=== PATIENT | female | born 1990 | race Caucasian/White ===

== ENCOUNTER 2020-01-07 02:45 | Emergency (ER) | payer OTHER ==
[2020-01-07] MEDS ORDERED: Lidocaine 1% (PF) 30 ML VIAL ONE (03:04)
== END 2020-01-07 03:27 | disposition home or self-care (01) ==
LOC: ERS 02:45
DX: L05.01 Pilonidal cyst with abscess (principal); Z79.01 Long term (current) use of anticoagulants
CPT/HCPCS: 10080; J2001

== ENCOUNTER 2020-05-01 06:47 | Emergency (ER) | payer OTHER ==
[2020-05-01 07:20] LABS: Bilirubin Negative (Negative); Blood, Urine Negative (Negative); Glucose, Urine (Dipstick) Normal (Negative); Ketone, Urine Negative (Negative); Leukocyte 250 Leu/uL (Negative); Nitrite Negative (Negative); Protein, Urine (Dipstick) Negative (Neg-Trace); Specific Gravity, Urine 1.012 (1.002-1.036); Urobilinogen Normal mg/dL (Less than 2); pH, Urine 5.5 (5.0-9.0)
[2020-05-01 07:21] LABS: Clarity Hazy (Clear)
[2020-05-01 07:22] LABS: Pregnancy Test - Urine (BHCG) Negative (Negative); Pregu Control Background? CLEAR/WHITE (CLR/WHITE); Pregu Control Bar Appear? YES (CONTROL BAR); Specific Gravity 1.012 (1.002-1.036)
[2020-05-01 07:28] LABS: RBC/HPF 0-3 HPF (0-3); Squamous Epithelial 0-3 HPF (0-3); WBC/HPF 0-3 HPF (0-3)
[2020-05-01 07:29] LABS: Bacteria/HPF 2+ HPF (None Seen)
[2020-05-01] MEDS ORDERED: Ketorolac Tromethamine 30 MG/ML VIAL ONE (08:08)
[2020-05-01 08:28] LABS: #Basophils 0.1 thou/uL (0.0-0.2); #Eosinphils 0.2 thou/uL (0.0-0.7); #Lymphocytes 2.1 thou/uL (1.20-3.40); #Monocytes 0.6 thou/uL (0.11-0.59); #Neutrophils 7.6 thou/uL (1.40-6.50); %Basophils 0.7 % (0.0-1.0); %Eosinophils 2.1 % (0.0-10.0); %Lymphocytes 20.1 % (21.0-51.0); %Monocytes 5.5 % (0.0-10.0); %Neutrophils 71.6 % (42.0-75.0); Hemoglobin 12.4 g/dL (12.0-16.0); Mean Corpuscular HGB CONC 32.3 g/dL (32.0-36.0); Mean Corpuscular Volume 89.7 fL (78.0-98.0); Mean Platelet Volume 7.3 fL (7.4-10.4); Platelet Count 339 thou/uL (130-400); RBC Distribution Width 11.4 % (11.5-14.5); Red Blood Cell (RBC) Count 4.29 mill/uL (4.20-5.40); White Blood Cell (WBC) Count 10.6 thou/uL (4.8-10.8)
[2020-05-01 08:52] LABS: ALT (SGPT) 12 U/L (8-55); AST (SGOT) 13 U/L (5-34); Albumin 3.9 g/dL (3.5-5.0); Alkaline Phosphatase 69 U/L (40-110); Anion Gap 13 mmol/L (10-20); BUN (Urea Nitrogen) 8 mg/dL (7.0-18.7); Bilirubin, Total 0.2 mg/dL (0.2-1.2); Calc. Creatinine Clearance 0 mL/min (70-130); Calcium 9.1 mg/dL (7.8-10.44); Carbon Dioxide 27 mmol/L (22-29); Chloride 102 mmol/L (98-107); Estimated GFR-MDRD Greater than 90; Globulin 3.4 g/dL (2.4-3.5); Glucose 126 mg/dL (70-105); Potassium 3.8 mmol/L (3.5-5.1); Protein, Total 7.3 g/dL (6.0-8.3); Sodium 138 mmol/L (136-145)
--- NOTE | 2020-05-01 09:28 | ULT ---
SONOGRAM RIGHT UPPER QUADRANT: HISTORY: Right upper quadrant pain. COMPARISON: 03/05/2020. FINDINGS: Multiple shadowing stones again demonstrated within the gallbladder lumen, including at the gallbladd er neck. No gallbladder wall thickening or pericholecystic fluid. No point tenderness at the gallbl adder fossa. Common duct is 0.4 cm. Liver unremarkable without focal mass or intrahepatic biliary dilatation. No free fluid. IMPRESSION: Cholelithiasis. No sonographic findings of acute cholecystitis. Gallstone lodged at the gallbladder neck could, however, be a setup for pending cholecystitis. POS: BST
== END 2020-05-01 11:51 | disposition home or self-care (01) ==
LOC: ERS 06:47
DX: K80.20 Calculus of gallbladder without cholecystitis without obstruction (principal); F41.9 Anxiety disorder, unspecified; Z79.899 Other long term (current) drug therapy
CPT/HCPCS: 36415; 76705; 80053; 81003; 81015; 81025; 83690; 85025; 96372; J1885

== ENCOUNTER 2020-05-23 11:15 | Observation (INO) | payer OTHER ==
[~2020-05-23 11:15] MED LIST: Dexamethasone 20 MG/5 ML VIAL ONE; Glycopyrrolate 0.2 MG/ML 5 ML SYRINGE ONE; Lidocaine 1% PF 5 ML VIAL ONE; Ondansetron PF 4 MG/2 ML Vial ONE; PROPOFOL 200 MG/20 ML VIAL ONE; Rocuronium Bromide 10 MG/ML (10ML VIAL) ONE
[2020-05-23 11:36] LABS: Bilirubin Negative (Negative); Blood, Urine Negative (Negative); Clarity Clear (Clear); Glucose, Urine (Dipstick) Normal (Negative); Ketone, Urine Negative (Negative); Leukocyte Negative Leu/uL (Negative); Nitrite Negative (Negative); Protein, Urine (Dipstick) Negative (Neg-Trace); Specific Gravity, Urine 1.015 (1.002-1.036); Urobilinogen Normal mg/dL (Less than 2); pH, Urine 7.5 (5.0-9.0)
[2020-05-23] MEDS ORDERED: Ondansetron PF 4 MG/2 ML Vial ONE (11:44)
[2020-05-23] MEDS ORDERED: Ketorolac Tromethamine 30 MG/ML VIAL ONE (11:44)
[2020-05-23 12:08] LABS: #Basophils 0.1 thou/uL (0.0-0.2); #Eosinphils 0.1 thou/uL (0.0-0.7); #Lymphocytes 2.1 thou/uL (1.20-3.40); #Monocytes 0.5 thou/uL (0.11-0.59); #Neutrophils 9.9 thou/uL (1.40-6.50); %Basophils 0.7 % (0.0-1.0); %Lymphocytes 16.6 % (21.0-51.0); %Monocytes 4.2 % (0.0-10.0); %Neutrophils 77.4 % (42.0-75.0); Hemoglobin 13.9 g/dL (12.0-16.0); Mean Corpuscular HGB CONC 32.7 g/dL (32.0-36.0); Mean Corpuscular Hemoglobin 29.4 pg (27.0-31.0); Mean Corpuscular Volume 89.9 fL (78.0-98.0); Mean Platelet Volume 7.9 fL (7.4-10.4); Platelet Count 352 thou/uL (130-400); RBC Distribution Width 11.3 % (11.5-14.5); Red Blood Cell (RBC) Count 4.73 mill/uL (4.20-5.40); White Blood Cell (WBC) Count 12.8 thou/uL (4.8-10.8)
[2020-05-23 12:30] LABS: ALT (SGPT) 21 U/L (8-55); AST (SGOT) 16 U/L (5-34); Albumin 4.2 g/dL (3.5-5.0); Alkaline Phosphatase 69 U/L (40-110); Anion Gap 14 mmol/L (10-20); BUN (Urea Nitrogen) 11 mg/dL (7.0-18.7); Bilirubin, Total 0.2 mg/dL (0.2-1.2); Calc. Creatinine Clearance 0 mL/min (70-130); Calcium 9.5 mg/dL (7.8-10.44); Carbon Dioxide 24 mmol/L (22-29); Chloride 100 mmol/L (98-107); Estimated GFR-MDRD Greater than 90; Globulin 3.6 g/dL (2.4-3.5); Glucose 139 mg/dL (70-105); Lipase 17 U/L (8-78); Potassium 3.6 mmol/L (3.5-5.1); Protein, Total 7.8 g/dL (6.0-8.3); Sodium 134 mmol/L (136-145)
--- NOTE | 2020-05-23 14:06 | ULT ---
RIGHT UPPER QUADRANT ULTRASOUND: 05/23/20 HISTORY: Right upper quadrant pain. Gallstones. FINDINGS: The liver demonstrates homogeneous echotexture without focal mass or abnormal biliary ductal dilatati on. Multiple gallstones are seen with one of them at the neck of the gallbladder. No gallbladder wall thickening or pericholecystic fluid is seen. The common duct measures 5 mm in diameter. The pancrea s and right kidney appear normal. IMPRESSION: Cholelithiasis. POS: AH
[2020-05-23 16:08] VITALS: BMI 29.9
[2020-05-23] MEDS ORDERED: Midazolam HCl 2 mg/2 ml Vial ONE (16:43)
[2020-05-23] MEDS ORDERED: Fentanyl 100 MCG/2 ML VIAL ONE ×4 (16:43→22:05)
[2020-05-23] MEDS ORDERED: Bupivacaine/Epinephrine 0.25% 30 ML VIAL ONE (16:53)
[2020-05-23] MEDS ORDERED: HYDROmorphone 0.5 MG/0.5 ML SYRINGE ONE ×2 (19:25→20:04)
[2020-05-23] MEDS ORDERED: Calcium Carbonate 500 MG ChewTAB PO PRN (19:32)
[2020-05-23] MEDS ORDERED: Acetaminophen 325 MG TAB PO PRN (19:32)
[2020-05-23] MEDS ORDERED: Mag-Al 1200 mg/1200 mg/30 ML UDCUP PO PRN (19:32)
[2020-05-23] MEDS ORDERED: Dextrose 5% in Water 1,000 ML IV PRN (19:32)
[2020-05-23] MEDS ORDERED: Dextrose 50% Abboject 50 ML SYRINGE SLOW IVP PRN (19:32)
[2020-05-23] MEDS ORDERED: hydrALAZINE 20 MG/ML VIAL SLOW IVP PRN (19:32)
[2020-05-23] MEDS ORDERED: Promethazine HCl 25 MG/ML VIAL IM PRN ×2 (19:32→20:52)
[2020-05-23] MEDS ORDERED: Morphine 2 MG/ML VIAL SLOW IVP PRN (19:32)
--- NOTE | 2020-05-23 19:37 | PDOC.GSCN ---
Surgery Consult: HPI - Consult details Date: 05/23/20 Time: 19:35 Reason for consult: gallstones History of present illness: 05/23/20 19:35 29-year-old female with a long history of intermittent right upper quadrant pain. The pain is described as sharp and stabbing and radiates to the back. It is associated with nausea and occasional emesis. It is not related to any particular food intake. She reports that she has these episodes weekly, and that they have increased in frequency and severity. This is prompted presentation to the emergency department on 3 occurrences over the last 45 to 60 days. Surgery Consult: ROS - Review of Systems All systems: 10 systems reviewed and no additional complaints unless stated below. Surgery Consult: [facility] Past Medical History: Anxiety Past Surgical History: Right shoulder arthroscopy - Past Family History Pertinent family history: Diabetes mellitus Hypertension Heart disease - Past Social History Smoking Status: Never smoker Alcohol Use: rarely Drug Use History: none Living Situation: independent Surgery Consult: Exam - Vital signs Vital signs: Vital Signs - Most Recent Temp Pulse Resp BP Pulse Ox 98.3 F 75 16 141/83 H 99 05/23/20 15:35 05/23/20 15:35 05/23/20 15:35 05/23/20 15:35 05/23/20 15:35 - Physical Exam General: moderate distress, no distress, severe distress, well developed, well nourished ENT: no congestion, no hearing loss, normal mucosa, normal nares, normal pinna Respiratory: clear to auscultation, clear to percussion, normal expansion, normal respiratory effort Abdomen: soft, tender (Mild tenderness to palpation in the right upper quadrant) Integumentary: no abnormal pigmentation, no growths, no rash Neurologic: normal coordination, normal sensation Musculoskeletal: normal gait, normal posture Psychiatric: memory intact, oriented to time, oriented to person, oriented to place, speech is normal Surgery Consult: Meds - Medications Medications: Current Medications Acetaminophen (Acetaminophen 325 Mg Tab) 650 mg PO Q4H PRN PRN Reason: Headache/Fever Or Mild Pain Al Hydroxide/Mg Hydroxide (Mag-Al 1200 Mg/1200 Mg/30 Ml Udcup) 15 ml PO Q6H PRN PRN Reason: Dyspepsia Albuterol/Ipratropium (Ipratropium/Albuterol Sulfate 3 Ml Neb) 3 ml NEB Q4H PRN PRN Reason: Wheezing Calcium Carbonate (Calcium Carbonate 500 Mg Chewtab) 1,000 mg PO Q4H PRN PRN Reason: Dyspepsia Dextrose/Water (Dextrose 50% Abboject 50 Ml Syringe) 25 gm SLOW IVP PRN PRN PRN Reason: Hypoglycemia Famotidine (Famotidine 20 Mg Tab) 20 mg PO Q12HR FRANSISCO Famotidine (Famotidine/Pf 20 Mg/2ml Vial) 20 mg SLOW IVP Q12HR FRANSISCO Glucagon (Glucagon 1 Mg/Ml Vial) 1 mg IM PRN PRN PRN Reason: Hypoglycemia Hydralazine HCl (Hydralazine 20 Mg/Ml Vial) 10 mg SLOW IVP Q4H PRN PRN Reason: SBP > 170 or DBP > 100 Dextrose/Water (D5w) 1,000 mls @ 0 mls/hr IV .Q0M PRN PRN Reason: Hypoglycemia Potassium Chloride/Dextrose/Sod Cl (D5 1/2 Ns W/20 Meq Kcl) 1,000 mls @ 75 mls/hr IV .[id number] [facility] Ketorolac Tromethamine (Ketorolac Tromethamine 30 Mg/Ml Vial) 30 mg IVP Q6HR [facility] Stop: 05/28/20 23:59 Morphine Sulfate (Morphine 2 Mg/Ml Vial) 2 mg SLOW IVP Q2H PRN PRN Reason: Mild Pain (1-3) Promethazine HCl (Promethazine Hcl 25 Mg/Ml Vial) 12.5 mg IM Q4H PRN PRN Reason: Nausea/Vomiting - Allergies Allergies/Adverse Reactions: Allergies Allergy/AdvReac Type Severity Reaction Status Date / Time codeine Allergy Verified 05/23/20 16:22 tramadol Allergy Verified 05/23/20 16:22 Surgery Consult: Results - Labs Result Diagrams: 05/23/20 11:54 05/23/20 11:54 Lab results: Laboratory Results WBC 12.8 thou/uL (4.8-10.8) H 05/23/20 11:54 RBC 4.73 mill/uL (4.20-5.40) 05/23/20 11:54 Hgb 13.9 g/dL (12.0-16.0) 05/23/20 11:54 Hct 42.6 % (36.0-47.0) 05/23/20 11:54 MCV 89.9 fL (78.0-98.0) 05/23/20 11:54 MCH 29.4 pg (27.0-31.0) 05/23/20 11:54 MCHC 32.7 g/dL (32.0-36.0) 05/23/20 11:54 RDW 11.3 % (11.5-14.5) L 05/23/20 11:54 Plt Count 352 thou/uL (130-400) 05/23/20 11:54 MPV 7.9 fL (7.4-10.4) 05/23/20 11:54 Neutrophils % 77.4 % (42.0-75.0) H 05/23/20 11:54 Lymphocytes % 16.6 % (21.0-51.0) L 05/23/20 11:54 Monocytes % 4.2 % (0.0-10.0) 05/23/20 11:54 Eosinophils % 1.0 % (0.0-10.0) 05/23/20 11:54 Basophils % 0.7 % (0.0-1.0) 05/23/20 11:54 Neutrophils # 9.9 thou/uL (1.40-6.50) H 05/23/20 11:54 Lymphocytes # 2.1 thou/uL (1.20-3.40) 05/23/20 11:54 Monocytes # 0.5 thou/uL (0.11-0.59) 05/23/20 11:54 Eosinophils # 0.1 thou/uL (0.0-0.7) 05/23/20 11:54 Basophils # 0.1 thou/uL (0.0-0.2) 05/23/20 11:54 Sodium 134 mmol/L (136-145) L 05/23/20 11:54 Potassium 3.6 mmol/L (3.5-5.1) 05/23/20 11:54 Chloride 100 mmol/L (98-107) 05/23/20 11:54 Carbon Dioxide 24 mmol/L (22-29) 05/23/20 11:54 Anion Gap 14 mmol/L (10-20) 05/23/20 11:54 BUN 11 mg/dL (7.0-18.7) 05/23/20 11:54 Creatinine 0.69 mg/dL (0.6-1.1) 05/23/20 11:54 Estimated GFR (MDRD) Greater than 90 05/23/20 11:54 Glucose 139 mg/dL (70-105) H 05/23/20 11:54 Calcium 9.5 mg/dL (7.8-10.44) 05/23/20 11:54 Total Bilirubin 0.2 mg/dL (0.2-1.2) 05/23/20 11:54 AST 16 U/L (5-34) 05/23/20 11:54 ALT 21 U/L (8-55) 05/23/20 11:54 Alkaline Phosphatase 69 U/L (40-110) 05/23/20 11:54 Serum Total Protein 7.8 g/dL (6.0-8.3) 05/23/20 11:54 Albumin 4.2 g/dL (3.5-5.0) 05/23/20 11:54 Globulin 3.6 g/dL (2.4-3.5) H 05/23/20 11:54 Albumin/Globulin Ratio 1.2 g/dL (1.2-2.2) 05/23/20 11:54 Lipase 17 U/L (8-78) 05/23/20 11:54 Urine Color Colorless (Yellow) 05/23/20 11:19 Urine Clarity Clear (Clear) 05/23/20 11:19 Urine pH 7.5 (5.0-9.0) 05/23/20 11:19 Ur Specific [place] 1.015 (1.002-1.036) 05/23/20 11:19 Urine Protein Negative mg/dL (Neg-Trace) 05/23/20 11:19 Urine Glucose (UA) Normal mg/dL (Negative) 05/23/20 11:19 Urine Ketones Negative mg/dL (Negative) 05/23/20 11:19 Urine Blood Negative (Negative) 05/23/20 11:19 Urine Nitrite Negative (Negative) 05/23/20 11:19 Urine Bilirubin Negative (Negative) 05/23/20 11:19 Urine Urobilinogen Normal mg/dL (Less than 2) 05/23/20 11:19 Ur Leukocyte Esterase Negative [place]/uL (Negative) 05/23/20 11:19 - Radiology Interpretation US - abdomen Additional comments: Demonstrates cholelithiasis with no evidence of acute cholecystitis Surgery Consult: A/P - Problem (1) Acute cholecystitis Current Visit: Yes Code(s): K81.0 - ACUTE CHOLECYSTITIS Status: Acute - Plan Plan: Place in observation Plan for laparoscopic cholecystectomy this evening. The relative risks and benefits of this procedure were discussed in detail with the patient, specifically addressing the risk of bleeding, infection, damage to adjacent structures, bile leak, and common bile duct injury. Informed consent was obtained.
[2020-05-23] MEDS ORDERED: Albuterol 200 PUFF (6.7GM INHALER) INH PRN (19:40)
--- NOTE | 2020-05-23 20:45 | PDOC.OP ---
Operative Note - Operative Note Operative Note: DATE OF SURGERY: May 23, 2020 SURGEON: Zak Johnson MD PREOPERATIVE DIAGNOSIS: Acute cholecystitis POSTOPERATIVE DIAGNOSIS: Cholecystitis PROCEDURE: Laparoscopic cholecystectomy INDICATIONS: 29-year-old female with a long history of abdominal pain. Thier work-up was consistent with acute cholecystitis. Their management options were discussed to include laparoscopic cholecystectomy. The relative risks and benefits of this procedure were discussed in detail with the patient, specifically addressing the risks of bleeding, infection, damage to adjacent structures, bile leak, and common bile duct injury. Informed consent was obtained. PROCEDURE IN DETAIL: The patient was brought to the operating room and positioned supine on the operating room table. After induction of general, endotracheal anesthesia, the patient was prepared and draped in the usual fashion. Prior to beginning the procedure, a complete timeout was performed with all members of the operative team being present and in agreement. Access to the abdomen was obtained in the right upper quadrant using an optical trocar under direct visualization. The abdomen was insufflated and additional trochars placed under direct visualization. Examination revealed inflammation in the right upper quadrant in the area of the gallbladder. The fundus of the gallbladder was grasped and retracted cephalad. Adhesions were gently dissected using blunt dissection with minimal electrocautery. The triangle of Calot was identified and dissected using blunt dissection with minimal electrocautery until the critical view of safety was achieved. Of note, the patient had an accessory artery on the posterior lateral aspect of the gallbladder. This was dissected and noted to only be entering the gallbladder. For additional safety, the cystic duct was dissected to the confluence with the common bile duct, and the common bile duct visualized. Once the critical view of safety was achieved, the cystic duct and cystic artery were divided between clips. The gallbladder was removed from the gallbladder bed using electrocautery. It was placed in a specimen retrieval bag, and the operative area examined. All free fluid was suctioned free from the abdomen and excellent hemostasis was achieved. The specimen was removed and passed off the field. The 12 mm trocar site fascia was closed with a 0-Vicryl tie utilizing a suture passer. The skin was closed with 4-0 Monocryl suture and dressed with skin adhesive dressing. At the conclusion of the case, all sponge and instrument counts were correct. ESTIMATED BLOOD LOSS: Minimal COMPLICATIONS: None INTRAOPERATIVE BLOOD TRANSFUSIONS: None GRAFTS / IMPLANTS: None SPECIMENS: Gallbladder DISPOSITION: The patient was transported to the postoperative recovery unit in good conditions to be transferred to the floor when criteria met.
[2020-05-23] MEDS ORDERED: Ondansetron HCl/PF 4 MG/2 ML Vial IVP PRN (20:52)
[2020-05-23] MEDS ORDERED: Meperidine HCl/PF 25 MG/ML VIAL SLOW IVP PRN (20:52)
[2020-05-23] MEDS ORDERED: Promethazine HCl 25 MG/ML VIAL SLOW IVP PRN (20:52)
[2020-05-23] MEDS ORDERED: HYDROmorphone 2 MG/ML VIAL SLOW IVP PRN (20:52)
[2020-05-23] MEDS: Famotidine/PF 20 mg/2ml Vial SLOW IVP SCH (22:41)
[2020-05-23] MEDS: D5 1/2 NS w/20 mEq KCL 1,000 ML IV SCH (22:42)
[2020-05-23] MEDS: Famotidine 20 MG TAB PO SCH (22:45)
[2020-05-23] MEDS: Ketorolac Tromethamine 30 MG/ML VIAL IVP SCH (23:01)
[2020-05-24] MEDS: Ketorolac Tromethamine 30 MG/ML VIAL IVP SCH ×2 (05:28→12:00)
[2020-05-24] MEDS: Famotidine/PF 20 mg/2ml Vial SLOW IVP SCH (10:45)
[2020-05-24] MEDS: Famotidine 20 MG TAB PO SCH (10:58)
[2020-05-24] MEDS: D5 1/2 NS w/20 mEq KCL 1,000 ML IV SCH (12:17)
--- NOTE | 2020-05-24 13:58 | PDOC.BPN ---
- Brief Progress Note Encounter Date: 05/24/20 Encounter Time: 10:30 DATE OF ADMISSION: May 23, 2020 DATE OF DISCHARGE: May 24, 2020 ADMISSION DIAGNOSES: Acute cholecystitis DISCHARGE DIAGNOSES: Acute cholecystitis PROCEDURES: Laparoscopic cholecystectomy HOSPITAL COURSE: 29-year-old female presented with right upper quadrant pain. Emergency department work-up was consistent with acute cholecystitis. She was taken to the operating room later that day, where she underwent laparoscopic cholecystectomy. She was placed in observation on the floor. While on the floor, she was advanced to a regular diet which she tolerated without nausea or vomiting. She was ambulated early in her postoperative course. On postoperative day #1, she was tolerating regular diet, her pain is well controlled, she was ambulating independently and voiding spontaneously. She was appropriate for discharge. DISCHARGE MEDICATIONS: see Discharge Medication Reconciliation Ibuprofen 800 mg 3 times daily EXAMINATION: General: alert and oreinted, no acute distress, resting comfortably Cardiovascular: regular rate and rhythm Pulmonary: normal respirations, good tidal volume Abdomen: soft, non-tender, non-distended, incisions clean and intact Extremities: no edema, palpable pulses 1. Advance diet as tolerated. 2. Advance activity as tolerated. Avoid heavy lifting and straining until after postoperative clinic evaluation. Ambulate daily. 3. Take medications as instructed. 4. Follow-up 1-2 weeks. Contact surgery clinic for appointment. 5. Do not remove Dermabond. Wash normally. It will come off on its own. 6. Consider [id number] stool softener or laxative while taking narcotic pain medication. 7. Contact the surgery clinic ([phone]) or report to the emergency department for persistent fevers, increasing pain, persistent nausea or vomiting,
[2020-05-24 16:36] VITALS: BP 112/68; TEMP 98.5
[2020-05-26 00:13] LABS: SARS-CoV-2 MS2 Positive; SARS-CoV-2 N Gene Negative; SARS-CoV-2 S Gene Negative; SARS-CoV-2 by NAA Not Detected (Not Detected); SARS-CoV-2 orf1ab Negative
== END 2020-05-24 17:36 | disposition home or self-care (01) ==
LOC: ERS 11:15 → SJJU 15:30
PROVIDERS: ADMIT Surgery; ATTEND Surgery
PROC: 0FT44ZZ Resection of Gallbladder, Percutaneous Endoscopic Approach (ICD-10-PCS; principal; 2020-05-23)
DX: K80.12 Calculus of gallbladder with acute and chronic cholecystitis without obstruction (principal); F41.9 Anxiety disorder, unspecified; Z79.899 Other long term (current) drug therapy; Z88.5 Allergy status to narcotic agent; Z20.828 Contact with and (suspected) exposure to other viral communicable diseases
CPT/HCPCS: 76705; 80053; 81003; 83690; 85025; 87635; 88304; 96374; 96375; 96376; G0378; J0690; J1100; J1170; J1885; J2250; J2270; J2405; J2704; J3010; J3480; S0028; U0003

== ENCOUNTER 2021-08-30 15:59 | Emergency (ER) | payer OTHER ==
[2021-08-30] MEDS ORDERED: Lidocaine 1% (PF) 30 ML VIAL ONE (16:32)
[2021-08-30] MEDS ORDERED: Boostrix 0.5 ML (Tdap) VIAL ONE (16:55)
== END 2021-08-30 17:43 | disposition home or self-care (01) ==
LOC: ERS 15:59
DX: S61.211A Laceration without foreign body of left index finger without damage to nail, initial encounter (principal); W26.0XXA Contact with knife, initial encounter; Z87.19 Personal history of other diseases of the digestive system; Z23 Encounter for immunization
CPT/HCPCS: 12002; 90471; 90715; J2001

== ENCOUNTER 2021-09-10 20:39 | Emergency (ER) | payer OTHER | END 2021-09-10 22:26 | disposition home or self-care (01) | LOC: ERS 20:39 | DX: S61.211D Laceration without foreign body of left index finger without damage to nail, subsequent encounter (principal); Z79.899 Other long term (current) drug therapy ==